=== PATIENT | female | born 1965 | race Caucasian/White ===

== ENCOUNTER 2016-10-29 11:32 | Emergency (ER) | payer MEDICARE, MEDICAID ==
[2016-10-29 12:19] LABS: STREP A SCREEN NEGATIVE (NEGATIVE)
--- NOTE | 2016-10-29 12:19 | Emergency Department Record ---
History of Present Illness - General Chief complaint: ENT Stated complaint: ? THRUSH Time Seen by Provider: 10/29/16 11:51 Source: Patient Mode of Arrival: Ambulatory Limitations: No limitations - History of Present Illness Initial comments: pt had a shot of steroids and states it has caused thrush like it always does. she has a sore throat, fevers, cough, rhinitis. complaint: Difficulty swallowing, Sore throat Onset/Timin -: Days(s) Location: Tongue Severity: Moderate Severity scale (1-10): 4 Quality: Aching Consistency: Constant Improves with: None Worsens with: None Associated Symptoms: Cough, Pain with swallowing - Related Data Home Medications Medication Instructions Recorded Confirmed Last Taken Hydrocodone/Acetaminophen [Eugene 1 tab PO QID PRN 03/23/14 10/29/16 1 Day Ago 7.5mg/325mg] Spironolactone [Spironolactone] 25 mg PO DAILY 03/23/14 10/29/16 1 Day Ago Albuterol Sulfate [Proair Hfa] 1 - 2 puff IH .EVERY 4-6 HOURS PRN 10/29/1610/29 1 Day Ago Albuterol Sulfate [Ventolin Hfa] 1 - 2 puff IH .EVERY 4-6 HOURS PRN 10/29/16 1 Day Ago Alendronate Sodium 70 mg PO WEEKLY 10/29/16 10/29/16 1 Day Ago Beclomethasone Dipropionate [Qvar 1 puff IH DAILY 10/29/16 10/29/16 1 Day Ago 80 Mcg Inhaler] Biotin 5 mg PO DAILY 10/29/16 10/29/16 1 Day Ago Diclofenac Sodium [Voltaren] 100 gm TP BID 10/29/16 10/29/16 1 Day Ago Fluticasone Propionate [Flovent 1 puff INH BID PRN 10/29/16 10/29/16 1 Day Ago 110 Mcg] Hydrochlorothiazide [Hctz 25Mg] 25 mg PO DAILY 10/29/16 10/29/16 1 Day Ago Levothyroxine Sodium [Synthroid] 100 mcg PO DAILY 10/29/16 10/29/16 1 Day Ago Previous Rx's Medication Instructions Recorded Nystatin 1 ml PO BID #30 ml 10/29/16 Allergies Allergy/AdvReac Type Severity Reaction Status Date / Time NSAIDS (Non-Steroidal Allergy SWELLING Verified 10/29/16 11:41 Anti-Inflamma (GENERAL) Sulfa (Sulfonamide Allergy RASH Verified 10/29/16 11:41 Antibiotics) acetaminophen AdvReac VOMITING Verified 10/29/16 11:41 [From Darvocet-N] propoxyphene napsylate AdvReac VOMITING Verified 10/29/16 11:41 [From Darvocet-N] Travel Screening - Travel/Exposure Within Last 30 Days Have you traveled within the last 30 days?: No - Travel/Exposure Within Last Year Have you traveled outside the [place] in the last year?: No - Additonal Travel Details Have you been exposed to anyone with a communicable illness?: No - Travel Symptoms Symptom Screening: None Review of Systems Reviewed: No additional complaints except as noted below Constitutional: Reports: As per HPI. Denies: Chills, Fever, Malaise, Night sweats, Weakness, Weight change Eyes: Reports: As per HPI. Denies: Eye discharge, Eye pain, Photophobia, Vision change ENT: Reports: As per HPI. Denies: Congestion, Dental pain, Ear pain, Epistaxis , Hearing loss, Throat pain Respiratory: Reports: As per HPI. Denies: Cough, Dyspnea, Hemoptysis, Stridor, Wheezes Cardiovascular: Reports: As per HPI. Denies: Arrhythmia, Chest pain, Dyspnea on exertion, Edema, Murmurs, Orthopnea, Palpitations, Paroxysmal nocturnal dyspnea, Rheumatic Fever, Syncope Endocrine: Reports: As per HPI. Denies: Fatigue, Heat or cold intolerance, Polydipsia, Polyuria Gastrointestinal: Reports: As per HPI. Denies: Abdominal pain, Constipation, Diarrhea, Hematemesis, Hematochezia, Melena, Nausea, Vomiting Genitourinary: Reports: As per HPI. Denies: Abnormal menses, Discharge, Dyspareunia, Dysuria, Frequency, Hematuria, Incontinence, Retention, Urgency Musculoskeletal: Reports: As per HPI. Denies: Arthralgia, Back pain, Gout, Joint swelling, Myalgia, Neck pain Skin: Reports: As per HPI. Denies: Bruising, Change in color, Change in hair/ nails, Lesions, Pruritus, Rash Neurological: Reports: As per HPI. Denies: Abnormal gait, Confusion, Headache, Numbness, Paresthesias, Seizure, Tingling, Tremors, Vertigo, Weakness Psychiatric: Reports: As per HPI. Denies: Anxiety, Auditory hallucinations, Depression, Homicidal thoughts, Suicidal thoughts, Visual hallucinations Hematological/Lymphatic: Reports: As per HPI. Denies: Anemia, Blood Clots, Easy bleeding, Easy bruising, Swollen glands Past Medical History - SOCIAL HISTORY Smoking Status: Current every day smoker Alcohol Use: Occassional Drug Use: None - RESPIRATORY Hx Respiratory Disorders: Yes Hx Asthma: Yes - CARDIOVASCULAR Hx Cardio Disorders: No - NEURO Hx Neuro Disorders: Yes Hx Headaches: Yes - GI Hx GI Disorders: Yes Hx Irritable Bowel: Yes - Hx Genitourinary Disorders: No - ENDOCRINE Hx Endocrine Disorders: No Hx Diabetes: No - MUSCULOSKELETAL Hx Arthritis: Yes Hx Fibromyalgia: Yes - PSYCH Hx Psych Problems: No - HEMATOLOGY/ONCOLOGY Hx Hematology/Oncology Disorders: Yes 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 negative: External canal tenderness Nasal Exam: Normal inspection. negative: Discharge, Sinus tenderness Mouth exam: Tongue normal, Other Teeth exam: Normal inspection. negative: Dental caries Throat exam: Tonsillar erythema. negative: Tonsillar exudate - Neck Neck exam: Normal inspection, Full ROM. negative: Tenderness - Respiratory Respiratory exam: Normal lung sounds bilaterally. negative: Respiratory distress - Cardiovascular Cardiovascular Exam: Regular rate, Normal rhythm, Normal heart sounds - GI/Abdominal GI/Abdominal exam: Soft, Normal bowel sounds. negative: Tenderness - Rectal Rectal exam: Deferred - exam: Deferred - Extremities Extremities exam: Normal inspection, Full ROM, Normal capillary refill. negative: Tenderness - Back Back exam: Reports: Normal inspection, Full ROM. Denies: Muscle spasm, Rash noted, Tenderness - Neurological Neurological exam: Alert, Normal gait, Oriented X3, Reflexes normal - Psychiatric Psychiatric exam: Normal affect, Normal mood - Skin Skin exam: Dry, Intact, Normal color, Warm Course Vital Signs 03/18/17 11:34 Temperature 98.0 F Pulse Rate 86 Respiratory 18 Rate Blood Pressure 143/69 Pulse Ox 98 Medical Decision Making - Management Options MDM Management: No Additional Work-up Planned - Data Complexity MDM Data: Labs Ordered and/or Reviewed Disposition Disposition: Discharge Clinical Impression: Viral Infection, Thrush Disposition: Home, Self-Care Condition: (1) Good Instructions: Viral Syndrome (ED), Oral Candidiasis (ED) Additional Instructions: follow up with family doctor. return sooner if worse. Prescriptions: Nystatin 1 ml PO BID #30 ml Forms: Patient Portal Access
[2016-10-29 12:28] LABS: INFLUENZA A NEGATIVE (NEGATIVE); INFLUENZA B NEGATIVE (NEGATIVE)
== END 2016-10-29 12:53 | disposition home or self-care (01) ==
LOC: ER 11:32
DX: B37.0 Candidal stomatitis (principal); B34.9 Viral infection, unspecified
CPT/HCPCS: 87400; 87880; 99282